=== PATIENT | female | born 1995 | race Caucasian/White ===

== ENCOUNTER 2017-12-02 10:25 | Emergency (ER) | payer OTHER, SELFPAY ==
[2017-12-02] MEDS ORDERED: NA CHLORIDE 0.9% 1,000 ML ONE (11:01)
[2017-12-02] MEDS ORDERED: ACETAMINOPHEN 500 MG TAB ONE (11:01)
[2017-12-02 11:12] LABS: Absolute Lymphocytes (CBC) 1.3 K/uL (0.7-4.9); Absolute Monocytes 1.3 K/uL (0.1-1.3); Absolute Neutrophil 13.1 K/uL (1.8-8.0); Basophils % 0.4 % (0-1.3); Eosinophils % 0.1 % (0-4.4); Hematocrit 37.8 % (36.0-45.0); Lymphocytes % 8.4 % (15.3-44.8); MCH 31.2 pg (27.0-35.0); MCV 91.1 fL (80-100); MPV 8.6 fL (7.6-11.3); Monocytes % 8.1 % (3.3-12.3); RBC Red Blood Cell Count 4.15 M/uL (3.86-4.86)
[2017-12-02 11:29] LABS: Albumin 4.2 g/dL (3.4-5.0); Potassium 3.7 mmol/L (3.5-5.1); Protein, Total 8.4 g/dL (6.4-8.2)
--- NOTE | 2017-12-02 11:37 | RAD REPORT ---
EXAM DESCRIPTION: CT - Stone Protocol - 12/02/2017 11:25 am CLINICAL HISTORY: Right-sided back pain, right-sided flank pain, fever, dysuria COMPARISON: None. TECHNIQUE: Axial 5 mm thick images were obtained without oral or IV contrast. The [id number] span s the entirety of the system including uppermost abdomen and lung bases. All CT scans are performed using dose optimization technique as appropriate and may include automated exposure control or mA/KV adjustment according to patient size. FINDINGS: Very minimal enlargement of the right collecting system is present when compared to the le ft. No obstructing or nonobstructing calculi seen. There is very subtle edema of the right kidney rel ative to the left. Partially filled urinary bladder shows no mass, stone or wall thickening. No suspi cious renal masses. Isodense masses and pyelonephritis are not excluded on a stone protocol CT scan. Liver shows diffuse fatty infiltration pattern. Minimal sparing near the gallbladder fossa. No focal liver lesion. Spleen and pancreas show no suspicious finding on noncontrast imaging. No gallbladder o r biliary tree abnormality identified. No significant adrenal finding. No suspicious bowel findings. Moderate stool volume present in the colon. Appendix is negative. Uteru s and ovaries show no suspicious findings. No hernia, mass or bulky lymphadenopathy noted. No free air, free fluid or inflammatory stranding. No significant bony abnormality. IMPRESSION: Right collecting system is only fractionally larger than the left with no obstructing or nonobstructing calculus. No bladder calculus seen. Right kidney shows subtle edema relative to the left. Right-sided pyelonephritis is certainly possible but cannot be further assessed on noncontrast imagin g. A recently passed stone would be possible. Diffuse fatty infiltration of the liver. Isodense masses and pyelonephritis are not excluded on stone protocol technique.
--- NOTE | 2017-12-02 11:48 | ER ---
Nurse's Notes [facility] Name: rFida Corona Age: 22 yrs Sex: Female : 1995 Arrival Date: 12/02/2017 Time: 10:26 Bed 6 Private MD: Diagnosis: Fever, unspecified;Elevated white blood cell count;Cystitis;Acute tubulo-interstitial nephritis Presentation: 12/02 10:29 Presenting complaint: Patient states: "I just hurt all over but mainly the right side aa5 of my back". Pt reports burning with urination and fever x 2-3 days ago, pt reports nausea, denies vomiting. Transition of care: patient was not received from another setting of care. Risk Assessment: Do you want to hurt yourself or someone else? Patient reports no desire to harm self or others. Care prior to arrival: None. 10:29 Method Of Arrival: Ambulatory aa5 10:29 Acuity: ALEKSANDRA 3 aa5 13:29 Onset of symptoms was December 02, 2017. Initial Sepsis Screen: Does the patient meet any 2 aj criteria? Temp <36.0*C (96.8*F)) or > 38.3*C (100.4*F). HR > 90 bpm. Yes Does the patient have a suspected source of infection? Yes:. 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 - Social history:: Smoking status: Patient/guardian denies using tobacco. - Ebola Screening: : No symptoms or risks identified at this time. Screenin:06 Abuse screen: Denies threats or abuse. Denies injuries from another. Nutritional aj screening: No deficits noted. Tuberculosis screening: No symptoms or risk factors identified. Fall Risk None identified. Assessment: 10:43 General: Appears in no apparent distress. comfortable, Behavior is calm, cooperative, aj appropriate for age. Pain: Complains of pain in posterior aspect of right lateral abdomen and anterior aspect of right lateral abdomen. Neuro: Level of Consciousness is awake, alert, obeys commands, Oriented to person, place, time, situation, Appropriate for age. Respiratory: Airway is patent Respiratory effort is even, unlabored, Respiratory pattern is regular, symmetrical. : Reports pain in right flank(s). Derm: Skin is intact, is healthy with good turgor, Skin is pink, warm \\T\\ dry. normal. 13:26 Reassessment: Patient appears in no apparent distress at this time. No changes from aj previously documented assessment. Patient and/or family updated on plan of care and expected duration. Pain level reassessed. Patient is alert, oriented x 3, equal unlabored respirations, skin warm/dry/pink. Patient denies pain at this time. Patient states feeling better. Patient states symptoms have improved. Vital Signs: 10:31 BP 119 / 75; Pulse 115; Resp 20 S; Temp 102.9(TE); Pulse Ox 99% on R/A; Weight 77.11 kg aa5 (R); Height 5 ft. 2 in. (157.48 cm) (R); Pain 10/10; 12:03 BP 109 / 78; Pulse 109; Resp 20; Pulse Ox 97% on R/A; aj 13:26 BP 110 / 73; Pulse 99; Resp 18; Temp 99.0; Pulse Ox 99% on R/A; aj 10:31 Body Mass Index 31.09 (77.11 kg, 157.48 cm) aa5 ED Course: 10:26 Patient arrived in ED. rg4 10:30 Triage completed. aa5 10:31 Arm band placed on. aa5 10:32 Mathieu Rowland MD is Attending Physician. idania 10:35 Marta Barker, TERRENCE is Primary Nurse. aj 10:59 Radiology exam delayed due to test not completed at this time. cw1 11:06 Patient has correct armband on for positive identification. aj 11:06 No provider procedures requiring assistance completed. Inserted saline lock: 20 gauge aj in right forearm, using aseptic technique. Blood collected. 11:[address] via wheelchair. vr 11:24 CT completed. Patient tolerated procedure well. Patient moved back from CT. vr 11:25 CT Stone Protocol In Process Unspecified. EDMS 11:47 Maria Dolores Coleman MD is Hospitalizing Provider. idania 12:20 Chest Pa And Lat (2 Views) XRAY In Process Unspecified. EDMS 13:26 IV discontinued, intact, bleeding controlled, No redness/swelling at site. Pressure aj dressing applied. Administered Medications: 11:06 Drug: Tylenol 1000 mg Route: PO; aj 11:58 Follow up: Response: Temperature is decreased; Pain is decreased 11:07 Drug: NS 0.9% 1000 ml Route: IV; Rate: 1 bolus; Site: right forearm; aj 11:57 Follow up: Response: No adverse reaction; IV Status: Completed infusion; IV Intake: aj 1000ml 11:56 Drug: Rocephin - (cefTRIAXone) 1 grams Route: IVPB; Infused Over: 30 mins; Site: right aj forearm; 13:29 Follow up: Response: No adverse reaction; IV Status: Completed infusion; IV Intake: 25mlaj 12:08 Drug: levofloxacin 750 mg Volume: 150 ml; Route: IVPB; Infused Over: 90 mins; Site: aj right forearm; 13:29 Follow up: Response: No adverse reaction; IV Status: Completed infusion; IV Intake: aj 150ml Intake: 11:57 IV: 1000ml; Total: 1000ml. aj 13:29 IV: 25ml; Total: 1025ml. aj 13:29 IV: 150ml; Total: 1175ml. Outcome: 11:48 Decision to Hospitalize by Provider. [facility] 11:57 Discharge ordered by . idania 13:26 Discharged to home ambulatory. aj 13:26 Condition: good 13:26 Discharge instructions given to patient, family, Instructed on discharge instructions, follow up and referral plans. medication usage, Demonstrated understanding of instructions, follow-up care, medications, Prescriptions given X 1. 13:30 Patient left the ED. aj Addendum: 12/04/2017 11:30 Addendum: Culture Results: Positive blood culture. No further action required. Bacteria h b sensitive to prescribed antibiotic. Signatures: Dispatcher [employer] Marta Shirley RN RN aj Anderson, Corey, MD MD cha Calderon, Audri, RN RN Tierney Worthington Crystal cw1 Sheridan Chow RN RN hb Garcia, Rubi rg4
--- NOTE | 2017-12-02 11:49 | EDPHYS ---
Physician Documentation [facility] Name: Frida Corona Age: 22 yrs Sex: Female : 1995 Arrival Date: 12/02/2017 Time: 10:26 Bed 6 Private MD: ED Physician Mathieu Rowland HPI: 12/02 10:54 This 22 yrs old Female presents to ER via Ambulatory with complaints of Pain idania All Over, Weakness. 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 - Social history:: Smoking status: Patient/guardian denies using tobacco. - Ebola Screening: : No symptoms or risks identified at this time. ROS: 10:54 Eyes: Negative for injury, pain, redness, and discharge, ENT: Negative for injury, idania pain, and discharge, Neck: Negative for injury, pain, and swelling, Cardiovascular: Negative for chest pain, palpitations, and edema, Respiratory: Negative for shortness of breath, cough, wheezing, and pleuritic chest pain, Abdomen/GI: Negative for abdominal pain, nausea, vomiting, diarrhea, and constipation, : Negative for injury, bleeding, discharge, and swelling, MS/Extremity: Negative for injury and deformity, Skin: Negative for injury, rash, and discoloration, Neuro: Negative for headache, weakness, numbness, tingling, and seizure, Psych: Negative for depression, anxiety, suicide ideation, homicidal ideation, and hallucinations, Allergy/Immunology: Negative for hives, rash, and allergies, Endocrine: Negative for neck swelling, polydipsia, polyuria, polyphagia, and marked weight changes, Hematologic/Lymphatic: Negative for swollen nodes, abnormal bleeding, and unusual bruising. 10:54 Back: Positive for pain at rest, pain with movement, flank pain, bilaterally. 10:54 MS/extremity: Positive for pain, of the right leg and left leg. Exam: 10:54 Constitutional: This is a well developed, well nourished patient who is awake, alert, idania and in no acute distress. Head/Face: Normocephalic, atraumatic. Eyes: Pupils equal round and reactive to light, extra-ocular motions intact. Lids and lashes normal. Conjunctiva and sclera are non-icteric and not injected. Cornea within normal limits. Periorbital areas with no swelling, redness, or edema. ENT: Nares patent. No nasal discharge, no septal abnormalities noted. Tympanic membranes are normal and external auditory canals are clear. Oropharynx with no redness, swelling, or masses, exudates, or evidence of obstruction, uvula midline. Mucous membranes moist. Neck: Trachea midline, no thyromegaly or masses palpated, and no cervical lymphadenopathy. Supple, full range of motion without nuchal rigidity, or vertebral point tenderness. No Meningismus. Chest/axilla: Normal chest wall appearance and motion. Nontender with no deformity. No lesions are appreciated. Cardiovascular: Regular rate and rhythm with a normal S1 and S2. No gallops, murmurs, or rubs. Normal PMI, no JVD. No pulse deficits. Respiratory: Lungs have equal breath sounds bilaterally, clear to auscultation and percussion. No rales, rhonchi or wheezes noted. No increased work of breathing, no retractions or nasal flaring. Abdomen/GI: Soft, non-tender, with normal bowel sounds. No distension or tympany. No guarding or rebound. No evidence of tenderness throughout. Skin: Warm, dry with normal turgor. Normal color with no rashes, no lesions, and no evidence of cellulitis. MS/ Extremity: Pulses equal, no cyanosis. Neurovascular intact. Full, normal range of motion. Neuro: Awake and alert, GCS 15, oriented to person, place, time, and situation. Cranial nerves II-XII grossly intact. Motor strength 5/5 in all extremities. Sensory grossly intact. Cerebellar exam normal. Normal gait. Psych: Awake, alert, with orientation to person, place and time. Behavior, mood, and affect are within normal limits. 10:54 Back: pain, that is moderate, ROM is normal, normal spinal alignment noted, CVA tenderness, that is mild, is noted bilaterally. 10:56 Musculoskeletal/extremity: DVT Exam: No signs of deep vein thrombosis. no swelling, no idania tenderness, negative Homans' sign noted on exam, no appreciated bluish discoloration, no erythema, no increased warmth, pain. Vital Signs: 10:31 BP 119 / 75; Pulse 115; Resp 20 S; Temp 102.9(TE); Pulse Ox 99% on R/A; Weight 77.11 kg aa5 (R); Height 5 ft. 2 in. (157.48 cm) (R); Pain 10/10; 12:03 BP 109 / 78; Pulse 109; Resp 20; Pulse Ox 97% on R/A; aj 13:26 BP 110 / 73; Pulse 99; Resp 18; Temp 99.0; Pulse Ox 99% on R/A; aj 10:31 Body Mass Index 31.09 (77.11 kg, 157.48 cm) aa5 MDM: 10:32 Patient medically screened. [facility] 10:56 Data reviewed: vital signs, nurses notes, lab test result(s), radiologic studies. [facility] 12/02 10:54 Order name: CBC with Diff; Complete Time: 11:26 [facility] 12/02 10:54 Order name: Comprehensive Metabolic Panel; Complete Time: 11:45 [facility] 12/02 10:54 Order name: Blood Culture Adult (2) [facility] 12/02 10:54 Order name: Flu; Complete Time: 11:45 [facility] 12/02 10:54 Order name: Urine Culture [facility] 12/02 10:54 Order name: Lipase; Complete Time: 11:45 [facility] 12/02 10:54 Order name: CT Stone Protocol; Complete Time: 11:45 [facility] 12/02 10:54 Order name: Procalcitonin [facility] 12/02 10:57 Order name: Chest Pa And Lat (2 Views) XRAY [facility] 12/02 11:15 Order name: Urine Dipstick--Ancillary (enter results) 12/02 11:15 Order name: Urine --Ancillary (enter results) 12/02 10:54 Order name: Urine Dipstick-Ancillary (obtain specimen); Complete Time: 11:07 [facility] 12/02 10:54 Order name: Urine Test (obtain specimen); Complete Time: 11:07 [facility] Administered Medications: 11:06 Drug: Tylenol 1000 mg Route: PO; aj 11:58 Follow up: Response: Temperature is decreased; Pain is decreased 11:07 Drug: NS 0.9% 1000 ml Route: IV; Rate: 1 bolus; Site: right forearm; aj 11:57 Follow up: Response: No adverse reaction; IV Status: Completed infusion; IV Intake: aj 1000ml 11:56 Drug: Rocephin - (cefTRIAXone) 1 grams Route: IVPB; Infused Over: 30 mins; Site: right forearm; 13:29 Follow up: Response: No adverse reaction; IV Status: Completed infusion; IV Intake: 25mlaj 12:08 Drug: levofloxacin 750 mg Volume: 150 ml; Route: IVPB; Infused Over: 90 mins; Site: right forearm; 13:29 Follow up: Response: No adverse reaction; IV Status: Completed infusion; IV Intake: 150ml Disposition: 12/02/17 11:57 Discharged to Home. Impression: Fever, unspecified, Elevated white blood cell count, Cystitis, Acute tubulo-interstitial nephritis. - Condition is Stable. - Discharge Instructions: Dysuria, Pyelonephritis, Adult, Pyelonephritis, Adult, [id number]. - Prescriptions for Levaquin 750 mg Oral Tablet - take 1 tablet by ORAL route once daily for 8-10 days; 9 tablet. - Medication Reconciliation Form, Thank You Letter, Antibiotic Education, Prescription Opioid Use, Family Work Release form. - Follow up: Private Physician; When: 2 - 3 days; Reason: Recheck today's complaints, Continuance of care, Re-evaluation by your physician. - Problem is new. - Symptoms have improved. Signatures: Dispatcher [employer] Marta Shirley RN RN aj Anderson, Corey, MD MD cha Calderon, Audri RN RN aa5 Corrections: (The following items were deleted from the chart) 11:56 11:48 Hospitalization Ordered by Maria Dolores Coleman MD for Inpatient Admission. Preliminary [facility] diagnosis is Acute tubulo-interstitial nephritis; Cystitis; Weakness; Fever, unspecified. Bed requested for Telemetry/MedSurg (Inpatient). Status is Inpatient Admission. Condition is Stable. Problem is new. Symptoms have improved. UTI on Admission? Yes. [facility] 13:30 11:57 12/02/2017 11:57 Discharged to Home. Impression: Fever, unspecified; Elevated white blood cell count; Cystitis; Acute tubulo-interstitial nephritis. Condition is Stable. Forms are Medication Reconciliation Form, Thank You Letter, Antibiotic Education, Prescription Opioid Use. Follow up: Private Physician; When: 2 - 3 days; Reason: Recheck today's complaints, Continuance of care, Re-evaluation by your physician. Problem is new. Symptoms have improved. idania
[2017-12-02] MEDS ORDERED: CEFTRIAXONE/SWI 1gm 1 GM/10 ML SYR ONE (11:50)
[2017-12-02] MEDS ORDERED: Levofloxacin 750mg IV 750 MG/150 ML BAG IV ONE (12:07)
--- NOTE | 2017-12-02 12:28 | RAD REPORT ---
EXAM DESCRIPTION: RAD - Chest Pa And Lat (2 Views) - 12/02/2017 12:21 pm CLINICAL HISTORY: Cough, malaise, fever, right-sided chest pain COMPARISON: None. TECHNIQUE: PA and lateral views of the chest were obtained. FINDINGS: The lungs are clear of a peripheral mass or consolidation. No failure finding. Hilar regio ns are not outside of normal range. Lung markings are minimally prominent. Baseline is unknown. There fore, minimal interstitial edema or infiltrate cannot be excluded. Trachea is midline. Heart size is normal and central vasculature is within normal limits. No pleur al effusion or pneumothorax seen. No acute bony finding noted. No aortic abnormality. IMPRESSION: No focal pneumonia identifiable. Mild prominence of the interstitial markings on a baseline study. Therefore, a mild interstitial karoline a or infiltrate cannot be excluded.
[2017-12-02 15:47] LABS: Urine Blood 1+ (NEG); Urine Glucose NEGATIVE (NEG); Urine Protein 2+ (NEG); Urine pH >8.5 (5.0-7.0)
== END 2017-12-02 13:30 | disposition home or self-care (01) ==
LOC: ER 10:25
DX: N30.90 Cystitis, unspecified without hematuria (principal); N10 Acute pyelonephritis; D72.829 Elevated white blood cell count, unspecified
CPT/HCPCS: 36415; 71046; 74176; 76377; 80053; 81003; 81025; 83690; 84145; 85025; 87040; 87077; 87086; 87088; 87186; 87205; 87804; 96361; 96365; 99284; J0696; J7030

== ENCOUNTER 2024-02-02 10:18 | Emergency (ER) | payer OTHER ==
[2024-02-02] MEDS ORDERED: KETOROLAC 30 MG/ML INJ ONE (10:31)
[2024-02-02 10:45] LABS: Specific Gravity 1.029 (1.005-1.030)
[2024-02-02 11:17] LABS: SARS-CoV-2 Antigen CONTROL BLUE LINE VIS/BG OK; SARS-CoV-2 Antigen Rapid Res Negative (Negative)
--- NOTE | 2024-02-02 11:27 | RAD REPORT ---
EXAM: Chest 2 views HISTORY: [facility] MAIN Chest pain;Congestion;Cough Bed Name: 15 COMPARISON: None. FINDINGS: LUNGS/PLEURA: The lungs are clear. No pleural effusions or pneumothorax. No pulmonary edema. MEDIASTINUM: The mediastinal silhouette is within normal limits. CARDIAC: The cardiac silhouette is within normal limits. UPPER ABDOMEN: No significant abnormality. BONES: No acute fracture. LINES/TUBES/OTHER: N/A IMPRESSION: No evidence of acute cardiopulmonary disease
--- NOTE | 2024-02-02 11:35 | ER ---
Nurse's Notes [facility] Name: Frida Harris Age: 28 yrs Sex: Female : 1995 Arrival Date: 02/02/2024 Time: 10:18 Bed 15 Private MD: Diagnosis: Streptococcal pharyngitis Presentation: 02/01 10:30 Chief complaint: Painful cough, sore throat, body aches, and sinus congestion x 2 days. hb Coronavirus screen: Client presents with at least one sign or symptom that may indicate coronavirus-19. Provider contacted for isolation considerations. Ebola Screen: No symptoms or risks identified at this time. Initial Sepsis Screen: Does the patient meet any 2 criteria? No. Patient's initial sepsis screen is negative. Does the patient have a suspected source of infection? No. Patient's initial sepsis screen is negative. Risk Assessment: Do you want to hurt yourself or someone else? Patient reports no desire to harm self or others. Onset of symptoms was February 01, 2024. 10:30 Method Of Arrival: Ambulatory hb 10:30 Acuity: ALEKSANDRA 4 hb Triage Assessment: 10:32 General: Appears in no apparent distress. Behavior is calm, cooperative. Pain: Pain hb currently is 10 out of 10 on a pain scale. EENT: Reports sore throat. Neuro: Level of Consciousness is awake, alert, obeys commands, Oriented to person, place, time, situation. Cardiovascular: Patient's skin is warm and dry. Respiratory: Reports pain with cough Respiratory effort is even, unlabored, Respiratory pattern is regular, symmetrical. Musculoskeletal: Reports body aches. Historical: - Allergies: 10:31 No Known Allergies; hb - Home Meds: 10:31 None [Active]; hb - PMHx: 10:31 Gestational HTN; hb - PSHx: 10:31 None; hb - Immunization history:: Adult Immunizations up to date. - Infectious Disease History:: Denies. - Social history:: Smoking status: Patient denies any tobacco usage or history of. Screenin:[address] [facility] ED Fall Risk Assessment (Adult) History of falling in the last 3 months, ko1 including since admission No falls in past 3 months (0 pts) Confusion or Disorientation No (0 pts) Intoxicated or Sedated No (0 pts) Impaired Gait No (0 pts) Mobility Assist Device Used No (0 pt) Altered Elimination No (0 pt) Score/Fall Risk Level 0 - 2 = Low Risk Oriented to surroundings, Maintained a safe environment, Educated pt \T\ family on fall prevention, incl call for assistance when getting out of bed, Hourly rounding (assess needs \T\ fall precautionary measures) done. Abuse screen: Denies threats or abuse. Denies injuries from another. Nutritional screening: No deficits noted. Tuberculosis screening: No symptoms or risk factors identified. Assessment: 10:44 General: Appears in no apparent distress. Behavior is calm, cooperative, appropriate ko1 for age. Pain: Complains of pain in forehead, nose and chest. Neuro: No deficits noted. Cardiovascular: No deficits noted. Respiratory: Reports cough that is pain with cough. GI: No deficits noted. : No deficits noted. EENT: Reports nasal congestion nasal discharge. Derm: No deficits noted. Musculoskeletal: No deficits noted. Vital Signs: 10:30 BP 123 / 98; Pulse 80; Resp 16; Temp 97.8(O); Pulse Ox 100% on R/A; Weight 74.84 kg; hb Height 5 ft. 4 in. ; 11:14 BP 127 / 84; Pulse 84; Resp 15; Pulse Ox 99% ; ko1 10:30 Body Mass Index 28.32 (74.84 kg, 162.56 cm) hb ED Course: 10:21 Patient arrived in ED. mg5 10:21 Eunice Nugent PA-C is PHCP. sb4 10:21 Jasmeet Durham MD is Attending Physician. sb4 10:25 Ana Rosa Verma, TERRENCE is Primary Nurse. ko1 10:31 Triage completed. hb 10:32 Arm band placed on. hb 10:39 Test, Urine Sent. ko1 10:42 Strep Sent. ko1 10:42 Flu Sent. ko1 10:42 SARS RAPID Sent. ko1 10:43 Patient requests rest room assistance. ko1 10:43 Patient has correct armband on for positive identification. Bed in low position. Call ko1 light in reach. Side rails up X 1. Provided Education on: tests. Pulse ox on. NIBP on. Door closed. Noise minimized. Lights dimmed. Assisted to bathroom. 10:43 No provider procedures requiring assistance completed. Urine collected: clean catch ko1 specimen, kayaky colored, COVID swab sent to lab. Flu and/or RSV swab sent to lab. Strep swab sent to lab. Patient did not have IV access during this emergency room visit. 11:10 Chest Pa And Lat (2 Views) XRAY In Process Unspecified. EDMS Administered Medications: 10:47 Drug: Ketorolac IM 30 mg IM once Route: IM; Site: left deltoid; ko1 11:02 Follow up: Response: No adverse reaction ko1 Medication: 10:44 VIS not applicable for this client. ko1 Outcome: 11:35 Discharge ordered by . [email or web address] 11:40 Discharged to home ambulatory, ko1 11:40 Condition: stable 11:40 Discharge instructions given to patient, Instructed on discharge instructions, follow up and referral plans. medication usage, Demonstrated understanding of instructions, follow-up care, medications, Prescriptions given X 2, 11:41 Patient left the ED. ko1 Signatures: Dispatcher [employer] EDMS Sheridan Chow RN RN Ana Rosa Verma RN RN ko1 Eunice Nugent PA-C PA-C [email or web address] Kami Parks mg5
--- NOTE | 2024-02-02 11:35 | EDPHYS ---
Physician Documentation [facility] Name: Frida Harris Age: 28 yrs Sex: Female : 1995 Arrival Date: 02/02/2024 Time: 10:18 Bed 15 Private MD: ED Physician Jasmeet Durham HPI: 02/01 10:29 This 28 yrs old Female presents to ER via Unassigned with complaints of Chest sb4 Congestion, Painful Cough. 10:30 cough and congestion starting yesterday, chest started hurting this morning- worse with sb4 cough and inspiration. has taken tylenol for the pain. states she coughed up a little blood this morning. was sick with similar symptoms last week, got better with steroids. denies any other URI symptoms, no fever. no recent travel, OCPs, or smoking history. Historical: - Allergies: 10:31 No Known Allergies; hb - Home Meds: 10:31 None [Active]; hb - PMHx: 10:31 Gestational HTN; hb - PSHx: 10:31 None; hb - Immunization history:: Adult Immunizations up to date. - Infectious Disease History:: Denies. - Social history:: Smoking status: Patient denies any tobacco usage or history of. ROS: 10:30 Constitutional: Negative for fever, chills, and weight loss, sb4 10:30 Cardiovascular: Positive for chest pain, with cough, 10:30 All other systems are negative, Exam: 10:30 Constitutional: This is a well developed, well nourished patient who is awake, alert, sb4 and in no acute distress. Head/Face: Normocephalic, atraumatic. Eyes: Extra-ocular motions intact. Periorbital areas with no swelling, redness, or edema. ENT: Mucous membranes moist. Cardiovascular: Regular rate and rhythm with a normal S1 and S2. Respiratory: Lungs have equal breath sounds bilaterally, clear to auscultation and percussion. No rales, rhonchi or wheezes noted. No increased work of breathing, no retractions or nasal flaring. Skin: Warm, dry with normal turgor. Normal color with no rashes, no lesions, and no evidence of cellulitis. Vital Signs: 10:30 BP 123 / 98; Pulse 80; Resp 16; Temp 97.8(O); Pulse Ox 100% on R/A; Weight 74.84 kg; hb Height 5 ft. 4 in. ; 11:14 BP 127 / 84; Pulse 84; Resp 15; Pulse Ox 99% ; ko1 10:30 Body Mass Index 28.32 (74.84 kg, 162.56 cm) hb MDM: 10:23 Patient medically screened. sb4 11:34 Data reviewed: vital signs, nurses notes, lab test result(s), radiologic studies, and sb4 as a result, I will discharge patient. Counseling: I had a detailed discussion with the patient and/or guardian regarding the historical points, exam findings, and any diagnostic results supporting the discharge/admit diagnosis, lab results, radiology results, to return to the emergency department if symptoms worsen or persist or if there are any questions or concerns that arise at home. 02/01 10:29 Order name: SARS RAPID; Complete Time: 11:18 sb4 02/01 10:29 Order name: Flu; Complete Time: 11:18 sb4 02/01 10:29 Order name: Strep; Complete Time: 11:10 sb4 02/01 10:29 Order name: Test, Urine; Complete Time: 10:47 sb4 02/01 10:29 Order name: Chest Pa And Lat (2 Views) XRAY; Complete Time: 11:33 sb4 Administered Medications: 10:47 Drug: Ketorolac IM 30 mg IM once Route: IM; Site: left deltoid; ko1 11:02 Follow up: Response: No adverse reaction ko1 Disposition: 12:09 Co-signature as Attending Physician, Jasmeet Durham MD I reviewed the patient's care rn provided by the Advanced Practice Provider and agree with the diagnosis and treatment plan. Disposition Summary: 02/02/24 11:35 Discharge Ordered Notes: Location: Home sb4 Problem: new sb4 Symptoms: have improved sb4 Condition: Stable sb4 Diagnosis - Streptococcal pharyngitis sb4 Followup: sb4 - With: Private Physician - When: As needed - Reason: Recheck today's complaints, Re-evaluation by your physician Discharge Instructions: - Discharge Summary Sheet sb4 - Strep Throat, Adult, [id number] sb4 - Acute Bronchitis, Adult, [id number] sb4 Forms: - Work release form eb - Antibiotic Education sb4 - Patient Portal Instructions sb4 - Leadership Thank You Letter sb4 Prescriptions: - Amoxicillin 875 mg Oral Tablet - take 1 tablet ORAL route every 12 hours for 10 days; 20 tablet; Refills: 0, sb4 Product Selection Permitted - Tessalon Perles 100 mg Oral Capsule - take 1 capsule ORAL route every 8 hours As needed; 15 capsule; Refills: 0, sb4 Product Selection Permitted Signatures: Dispatcher [employer] EDMS Jasmeet Durham MD MD rn Baxter, Heather RN RN Ana Rosa Devine RN RN koEunice Woods PASeniaC PA-C sb4 Corrections: (The following items were deleted from the chart) 10: 10:29 Chest Pa And Lat (2 Views)+RAD.RAD.BRZ ordered. EDMS EDMS 10: 10:29 SARS-COV-2 Antigen Rapid+I.LAB.BRZ ordered. EDMS EDMS 10: 10:29 Influenza Screen (A \T\ B)+BA.LAB.BRZ ordered. EDMS EDMS 10: 10:29 Group A Streptococcus Rapid Sc+BA.LAB.BRZ ordered. EDMS EDMS 10: 10:29 Test, Urine+UC.LAB.BRZ ordered. EDMS EDMS
[2024-02-02 11:46] VITALS: TEMP 97.8
[2024-02-02 11:47] VITALS: BP 127/84; O2SAT 99
== END 2024-02-02 11:41 | disposition home or self-care (01) ==
LOC: ER 10:18
DX: J02.0 Streptococcal pharyngitis (principal); Z11.52 Encounter for screening for COVID-19
CPT/HCPCS: 36415; 71046; 81025; 87081; 87804; 87811; 96372; 99284

== ENCOUNTER 2024-04-20 09:50 | Emergency (ER) | payer OTHER ==
[2024-04-20] MEDS ORDERED: ALBUTEROL 2.5 MG/3 ML NEB SOL ONE (10:14)
[2024-04-20] MEDS ORDERED: IPRATROPIUM BROM 0.5MG/2.5ML ONE (10:14)
[2024-04-20] MEDS ORDERED: NA CHLORIDE 0.9% 500 ML ONE (10:14)
[2024-04-20] MEDS ORDERED: KETOROLAC 30 MG/ML INJ ONE (10:14)
[2024-04-20 10:38] LABS: Absolute Lymphocytes (CBC) 1.4 K/uL (0.7-4.9); Absolute Monocytes 0.2 K/uL (0.1-1.3); Absolute Neutrophil 1.9 K/uL (1.8-8.0); Basophils % 0.6 % (0-1.3); Eosinophils % 0.9 % (0-4.4); Hematocrit 36.6 % (36.0-45.0); Hemoglobin 12.1 g/dL (12.0-15.0); Lymphocytes % 38.6 % (15.3-44.8); MCH 30.7 pg (27.0-35.0); MCV 92.8 fL (80-100); MPV 8.1 fL (7.6-11.3); Monocytes % 5.8 % (3.3-12.3); Neutrophils % 54.1 % (41.7-73.7); Platelets 264 thou/uL (152-406); RBC Red Blood Cell Count 3.95 M/uL (3.86-4.86); Red Cell Distribution Width 12.7 % (12.1-15.2)
[2024-04-20 10:43] LABS: Specific Gravity 1.024 (1.005-1.030)
[2024-04-20 10:46] LABS: Specific Gravity 1.024 (1.005-1.030); Urine Bacteria None Seen /HPF (<20); Urine Bilirubin NEGATIVE (Negative); Urine Blood 2+ (Negative); Urine Clarity Turbid (Clear); Urine Color Light-Yellow (Yellow); Urine Culture Reflex Order NOT NEEDED; Urine Glucose NEGATIVE (Negative); Urine Ketones 2+ (Negative); Urine Micro Reflex YN NO BILL MICROSCOPIC; Urine Mucus Slight /HPF (None Seen); Urine Nitrite NEGATIVE (Negative); Urine Protein NEGATIVE (Negative); Urine Urobilinogen Normal (Normal); Urine WBC <5 /HPF (<5)
[2024-04-20 10:51] LABS: Anion Gap 10.1 mEq/L (5.0-15.0); Potassium 3.1 mEq/L (3.5-5.1)
[2024-04-20 11:01] LABS: SARS-CoV-2 Antigen CONTROL BLUE LINE VIS/BG OK; SARS-CoV-2 Antigen Rapid Res Negative (Negative)
--- NOTE | 2024-04-20 11:08 | ER ---
Nurse's Notes [facility] Name: Frida Decker Age: 28 yrs Sex: Female : 1995 Arrival Date: 04/20/2024 Time: 09:50 Bed 19 Private MD: Diagnosis: Viral infection, unspecified;Hypokalemia;Influenza due to identified novel influenza A virus Presentation: 04/20 10:02 Chief complaint: Patient states: can't breath, body aches, cough, kidneys hurt, iw symptoms started night before last. Coronavirus screen: Client presents with at least one sign or symptom that may indicate coronavirus-19. Ebola Screen: No symptoms or risks identified at this time. Initial Sepsis Screen: Does the patient meet any 2 criteria? No. Patient's initial sepsis screen is negative. Does the patient have a suspected source of infection? No. Patient's initial sepsis screen is negative. Risk Assessment: Do you want to hurt yourself or someone else? Patient reports no desire to harm self or others. Onset of symptoms was April 18, 2024. 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 - Infectious Disease History:: Denies. - Social history:: Smoking status: Patient denies any tobacco usage or history of. Screenin:29 [facility] ED Fall Risk Assessment (Adult) History of falling in the last 3 months, cm10 including since admission No falls in past 3 months (0 pts) Confusion or Disorientation No (0 pts) Intoxicated or Sedated No (0 pts) Impaired Gait No (0 pts) Mobility Assist Device Used No (0 pt) Altered Elimination No (0 pt) Score/Fall Risk Level 0 - 2 = Low Risk Oriented to surroundings, Maintained a safe environment, Hourly rounding (assess needs \T\ fall precautionary measures) done. Abuse screen: Denies threats or abuse. Denies injuries from another. Nutritional screening: No deficits noted. Tuberculosis screening: No symptoms or risk factors identified. Assessment: 10:29 General: Appears in no apparent distress. uncomfortable, Behavior is calm, cooperative. cm10 Pain: Complains of pain in Throat and chest. Neuro: No deficits noted. Level of Consciousness is awake, alert, obeys commands, Oriented to person, place, time, situation, Appropriate for age. Cardiovascular: No deficits noted. Heart tones present Patient's skin is warm and dry. Respiratory: No deficits noted. Airway is patent Respiratory effort is even, unlabored, Respiratory pattern is regular, symmetrical, Breath sounds are clear bilaterally. EENT: No deficits noted. Reports pain when swallowing. 11:31 Reassessment: Patient appears in no apparent distress at this time. No changes from cm10 previously documented assessment. Patient and/or family updated on plan of care and expected duration. Pain level reassessed. Patient is alert, oriented x 3, equal unlabored respirations, skin warm/dry/pink. Vital Signs: 10:02 BP 127 / 83; Pulse 109; Resp 20 S; Temp 98.6; Pulse Ox 100% on R/A; Weight 72.57 kg; iw Height 5 ft. 3 in. ; Pain 10/10; 11:31 BP 118 / 72; Pulse 110; Resp 18; Pulse Ox 98% on R/A; cm10 10:02 Body Mass Index 28.34 (72.57 kg, 160.02 cm) iw 10:02 Pain Scale: Adult iw ED Course: 09:52 Patient arrived in ED. ra3 09:53 Tab Maddox MD is Attending Physician. ec2 10:04 Triage completed. iw 10:10 Fabienne Carranza, TERRENCE is Primary Nurse. cm10 10:29 CBC with Diff Sent. cm10 10:29 BMP Sent. cm10 10:29 Influenza Screen (a \T\ B) Sent. cm10 10:29 SARS RAPID Sent. cm10 10:29 UAM Sent. cm10 10:29 Test, Urine Sent. cm10 10:29 Initial lab(s) drawn, by me, sent to lab. Urine collected: clean catch specimen, COVID cm10 swab sent to lab. Flu and/or RSV swab sent to lab. Inserted saline lock: 20 gauge in right antecubital area, using aseptic technique. Blood collected. Flushed with 10 mL NS. 10:29 Patient has correct armband on for positive identification. Bed in low position. Call cm10 light in reach. Provided Education on: ER process and procedures. Pulse ox on. NIBP on. 11:02 CXR XRAY In Process Unspecified. EDMS 11:31 No provider procedures requiring assistance completed. IV discontinued, intact, cm10 bleeding controlled, No redness/swelling at site. Pressure dressing applied. 11:32 Arm band placed on right wrist. cm10 Administered Medications: 10:28 Drug: DuoNeb Nebulize (3:1) (2.5 mg - 0.5 mg) 3 ml Nebulizer once Route: Nebulizer; cm10 11:31 Follow up: Response: No adverse reaction cm10 10:29 Drug: NS 0.9% IV 500 ml 500 ml IV at 1 bolus once; to be given as a bolus over 30 cm10 minutes Volume: 500 ml; Route: IV; Rate: 1 bolus; Site: right antecubital; 11:31 Follow up: Response: No adverse reaction; IV Status: Completed infusion; IV Intake: cm10 500ml 10:50 Drug: Ketorolac IVP 15 mg IVP once Route: IVP; Site: right antecubital; cm10 11:31 Follow up: Response: No adverse reaction cm10 Medication: 10:29 VIS not applicable for this client. cm10 Intake: 11:31 IV: 500ml; Total: 500ml. cm10 Outcome: 11:08 Discharge ordered by . ec2 11:31 Discharged to home ambulatory, with significant other, cm10 11:31 Condition: good 11:31 Discharge instructions given to patient, Instructed on discharge instructions, follow up and referral plans. medication usage, Demonstrated understanding of instructions, follow-up care, medications, Prescriptions given X 2, 11:32 Patient left the ED. cm10 Signatures: Dispatcher [employer] Xiomara Chandler RN RN iw Martinez, Clarissa, RN RN cm10 Tab Maddox MD MD ec2 Alva, Ruby ra3
--- NOTE | 2024-04-20 11:08 | EDPHYS ---
Physician Documentation [facility] Name: Frida Decker Age: 28 yrs Sex: Female : 1995 Arrival Date: 04/20/2024 Time: 09:50 Bed 19 Private MD: ED Physician Tab Maddox HPI: 04/20 10:29 This 28 yrs old Female presents to ER via Ambulatory with complaints of ec2 Breathing Difficulty. 10:29 Patient arrives today for 2 days of URI signs and symptoms. Reports cough and ec2 congestion, some nausea as well as diarrhea as well. Patient reports that she does not have any significant lung history such as asthma or COPD. Reports no previous cardiac disease. Reports generalized bodyaches as well.. 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 - Infectious Disease History:: Denies. - Social history:: Smoking status: Patient denies any tobacco usage or history of. ROS: 10:29 Constitutional: as per hpi ec2 Exam: 10:29 Constitutional: GEN: NAD Head: atraumatic Eyes: EOMI Ears: External ears are ec2 normal. CV: Tachycardia LUNGS: no respiratory distress, no wheezes or rales or rhonchi ABD: non-distended SKIN: no evidence of rashes MSK: no evidence of trauma Vital Signs: 10:02 BP 127 / 83; Pulse 109; Resp 20 S; Temp 98.6; Pulse Ox 100% on R/A; Weight 72.57 kg; iw Height 5 ft. 3 in. ; Pain 10/10; 11:31 BP 118 / 72; Pulse 110; Resp 18; Pulse Ox 98% on R/A; cm10 10:02 Body Mass Index 28.34 (72.57 kg, 160.02 cm) iw 10:02 Pain Scale: Adult iw MDM: 10:05 Medical Screening Exam initiated ec2 10:29 Data reviewed: vital signs, nurses notes. ED course: Patient arrives today for upper ec2 respiratory symptoms. Examination shows slight tachycardia. Will obtain lab work, chest x-ray. Suspect viral process. Doubt PE or volume overload. 11:07 ED course: Chest x-ray independently reviewed and interpreted by me, shows no focal ec2 opacity, no lobar pneumonia. Presentation consistent with influenza. Will discharge home. Return precautions given.. 04/20 10:06 Order name: CBC with Diff; Complete Time: 10:51 ec2 04/20 10:06 Order name: BMP; Complete Time: 10:54 ec2 04/20 10:06 Order name: Influenza Screen (a \T\ B); Complete Time: 11:06 ec2 04/20 10:06 Order name: SARS RAPID; Complete Time: 11:06 ec2 04/20 10:07 Order name: Test, Urine; Complete Time: 10:51 ec2 04/20 10:07 Order name: UAM; Complete Time: 10:51 ec2 04/20 10:06 Order name: CXR XRAY ec2 04/20 10:06 Order name: IV Start; Complete Time: 10:29 ec2 Administered Medications: 10:28 Drug: DuoNeb Nebulize (3:1) (2.5 mg - 0.5 mg) 3 ml Nebulizer once Route: Nebulizer; cm10 11:31 Follow up: Response: No adverse reaction cm10 10:29 Drug: NS 0.9% IV 500 ml 500 ml IV at 1 bolus once; to be given as a bolus over 30 cm10 minutes Volume: 500 ml; Route: IV; Rate: 1 bolus; Site: right antecubital; 11:31 Follow up: Response: No adverse reaction; IV Status: Completed infusion; IV Intake: cm10 500ml 10:50 Drug: Ketorolac IVP 15 mg IVP once Route: IVP; Site: right antecubital; cm10 11:31 Follow up: Response: No adverse reaction cm10 Disposition Summary: 04/20/24 11:08 Discharge Ordered Notes: Location: Home ec2 Condition: Stable ec2 Diagnosis - Viral infection, unspecified ec2 - Hypokalemia ec2 - Influenza due to identified novel influenza A virus ec2 Followup: ec2 - With: Private Physician - When: - Reason: Re-evaluation by your physician Discharge Instructions: - Discharge Summary Sheet ec2 - Viral Illness, Adult ec2 Forms: - Work release form ec2 - Medication Reconciliation Form ec2 - Antibiotic Education ec2 - Prescription Opioid Use ec2 - Patient Portal Instructions ec2 - Leadership Thank You Letter ec2 Prescriptions: - albuterol sulfate 90 mcg/actuation Inhalation HFA Aerosol Inhaler - inhale 2 inhalation INHALATION route every 2 hours as needed for bronchospasm; ec2 administer via ventilator; 1 unit; Refills: 0, Product Selection Permitted - Tamiflu 75 mg Oral capsule - take 1 tablet ORAL route every 12 hours for 5 days; 10 tablet; Refills: 0, ec2 Product Selection Permitted Signatures: Dispatcher [employer] Xiomara Chandler RN RN iw Fabienne Carranza RN RN cm10 Tab Maddox MD MD ec2 Corrections: (The following items were deleted from the chart) 10:07 10:07 Chest Single View+RAD.RAD.BRZ ordered. FILIPPO BARKLEY
--- NOTE | 2024-04-20 12:05 | RAD REPORT ---
Procedure: Chest Single View HISTORY: Cough COMPARISON: January 2024 FINDINGS: The lungs appear clear of acute infiltrate. No significant pleural effusion noted. The heart is normal size. Mediastinum appears more prominent than on the prior exam. IMPRESSION: Prominence of the mediastinum. CT chest with contrast recommended
[2024-04-20 12:09] VITALS: TEMP 98.6
[2024-04-20 12:11] VITALS: BP 118/72; O2SAT 98
== END 2024-04-20 11:32 | disposition home or self-care (01) ==
LOC: ER 09:50
DX: J10.1 Influenza due to other identified influenza virus with other respiratory manifestations (principal); B34.9 Viral infection, unspecified; E87.6 Hypokalemia; Z11.52 Encounter for screening for COVID-19
CPT/HCPCS: 96361; 85025; 81001; 80048; 36415; 81025; 87804 ×2; 71045; 96374; 99285; 87811; J7613; J7644; J7040